=== PATIENT | male | born 1970 | race Caucasian/White ===

== ENCOUNTER 2020-08-06 07:45 | Emergency (ER) | payer BC, SELFPAY ==
--- NOTE | ~2020-08-06 | XR_ITS ---
EXAMINATION: XR chest 2V DATE: 08/06/2020 08:50 INDICATION: Extremity swelling. TECHNIQUE: Frontal and lateral views of the chest were obtained. COMPARISON: None. FINDINGS: There is mild atelectasis in left lower lung zone. No pleural effusion or pneumothorax. The heart size is normal. IMPRESSION: 1. Mild atelectasis in left lower lung zone. Reviewed, dictated and finalized at location B.
[2020-08-06 07:53] VITALS: BP 141/99; PULSE 101; RESP 18; TEMP 36.3; O2SAT 100
--- NOTE | 2020-08-06 08:01 | ED.GENADULT ---
HPI - General Adult General Chief complaint: Unspecified Stated complaint: feet and hand swelling Time Seen by Provider: 08/06/20 08:01 Source: patient Mode of arrival: ambulatory Limitations: no limitations History of Present Illness HPI narrative: Patient is a 49-year-old male who presents for evaluation of joint swelling and redness. Patient states he has had intermittent swelling and redness of his bilateral feet and bilateral hands. It does seem to come and go over the past 5 days. He denies fever, chills, chest pain, shortness of breath, belly pain, nausea or vomiting. No recent travel. No history of Covid. No history of sexually transmitted infection. No dysuria or hematuria. Pain is dull, aching in nature. He has been taking Benadryl without any improvement in his symptoms. He also reports itchiness overlying the skin in his feet at times. No focal weakness or numbness. No rash. Related Data Home Medications Medication Instructions Recorded Confirmed All Day Allergy (cetirizine) 08/06/20 Kenalog 08/06/20 amlodipine 08/06/20 chlorthalidone 08/06/20 docusate sodium [Stool Softener] PO 08/06/20 duloxetine mg PO 08/06/20 fluticasone propionate INTRANASAL 08/06/20 mupirocin TOPICAL 08/06/20 oxybutynin chloride 08/06/20 oxycodone 08/06/20 potassium chloride [Klor-Con M20] meq PO 08/06/20 sumatriptan 08/06/20 valacyclovir 08/06/20 Allergies Allergy/AdvReac Type Severity Reaction Status Date / Time No Known Allergies Allergy Verified 08/06/20 07:56 Review of Systems Review of Systems: Narrative: CONSTITUTIONAL: Denies fever, chills, or sweats. EYES: Denies visual changes, redness, or discharge. ENT: Denies rhinorrhea, congestion, sore throat, or otalgia. CARDIOVASCULAR: Denies chest pain, palpitations, or edema. RESPIRATORY: Denies cough or dyspnea. GASTROINTESTINAL: Denies abdominal pain, nausea, vomiting, or diarrhea. GENITOURINARY: Denies dysuria or hematuria. SKIN: Reports redness of joint spaces, itching, denies other rash MUSCULOSKELETAL: Denies back pain, reports bilateral hand and foot pain NEUROLOGIC: Denies headache, numbness, or weakness. PMFSH Surgical History Surgical History (Updated 08/06/20 @ 08:22 by Poly Gonzalez MD) H/O inguinal hernia repair Social History Social History (Updated 08/06/20 @ 08:22 by Poly Gonzalez MD) Smoking status: Never smoker Substance use: never Living arrangements: with family Gender identity (if verbalized by the patient): Male Exam Narrative: Exam Narrative: GENERAL: Awake, alert, conversant HEAD: Normocephalic, atraumatic. EYES: PERRLA and EOMI. ENT: Nares clear, no rhinorrhea or epistaxis. Mucous membranes moist. NECK: Supple. CHEST: No respiratory distress, breathing even and non labored HEART: Regular rate, sinus rhythm ABDOMEN:Non distended, non tender EXTREMITIES: Normal range of motion. Mild edema of the bilateral hands and feet. Non pitting. Mild erythema and induration. Non tender to palpation. Neurovascularly intact. Full ROM without limitation or deficit. SKIN: No rash. NEURO:No focal deficits. Alert and oriented x3 Course Vital Signs Vital signs: Vital Signs Temperature 36.3 C L 08/06/20 07:53 Pulse Rate 101 H 08/06/20 07:53 Respiratory Rate 18 08/06/20 07:53 Blood Pressure 141/99 H 08/06/20 07:53 Pulse Oximetry 100 08/06/20 07:53 Temperature 36.3 C L 08/06/20 07:53 Pulse Rate 85 08/06/20 08:23 Respiratory Rate 20 08/06/20 08:23 Blood Pressure 124/86 08/06/20 08:23 Pulse Oximetry 99 08/06/20 08:23 Medical Decision Making MDM Narrative Medical decision making narrative: Patient presented for evaluation of multiple sites of edema, erythema. At the time of assessment, ABCs are intact and vital signs are stable. Physical exam is notable for multiple joint involvement of mild induration, erythema, tenderness on exam. This does not appear to be septic in natur
[2020-08-06 08:10] VITALS: PULSE 100; RESP 20; O2SAT 98
[2020-08-06 08:15] VITALS: PULSE 93; RESP 17; O2SAT 99
[2020-08-06 08:23] VITALS: BP 124/86; PULSE 85; RESP 20; O2SAT 99
[2020-08-06] MEDS: DEXAMETHASONE SOD PHOS INJ 4 MG/ML VIAL 10 MG BY MOUTH (08:38)
[2020-08-06 08:39] LABS: Add Urine Microscopic? NO; Appearance Urine Clear (Clear); Basophils Percent Auto 0.1 % (0.2-1.2); Bilirubin Urine Negative (Negative); Blood Urine Negative (Negative); Color Urine Straw (Yellow); Eosinophils Absolute Auto 0.1 K/mm3 (0-0.3); Eosinophils Percent Auto 0.7 % (0-4.4); Glucose Urine UA Negative (Negative); Hematocrit 45.7 % (42.0-52.0); Hemoglobin 16.1 g/dL (14.0-18.0); Immature Granulocyte Absolute 0.06 K/mm3 (0.00-0.031); Immature Granulocyte Percent A 0.4 % (0-0.5); Immature Platelet Fraction Pct 2.8 % (0.9-11.2); Ketones Urine Negative (Negative); Leukocyte Esterase Ur Negative LEU/UL (Negative); Lymphocytes Absolute Auto 1.79 K/mm3 (0.9-3.2); Mean Corpuscular HGB Conc 35.2 g/dl (32-36); Mean Corpuscular Volume 85.3 fl (80-100); Monocytes Absolute Auto 0.7 K/mm3 (0.1-0.6); Monocytes Percent Auto 5.2 % (2.6-8.5); Neutrophils Absolute Auto 11.1 K/mm3 (1.3-6.7); Neutrophils Percent Auto 80.6 % (45.5-73.1); Nitrate Urine Negative (Negative); Platelet Count Result 268 k/mm3 (150-375); Protein Urine Negative (Negative); Red Blood Count 5.36 M/mm3 (4.6-6.20); Red Cell Distribution Width 11.9 % (11.5-14.5); Specific Grav Ur 1.008 (1.001-1.035); Urobilinogen Urine Negative mg/dL (<2.0); White Blood Count 13.8 K/mm3 (4.5-10.0)
[2020-08-06 08:53] LABS: Alanine Aminotransferase 30 U/L (4-50); Albumin Level 4.6 g/dL (3.5-5.1); Alkaline Phosphatase 92 U/L (38-126); Anion Gap 9 mmol/L (8-16); Aspartate Amino Transferase 33 U/L (17-59); Bilirubin,Total 0.7 mg/dL (0.2-1.3); Blood Urea Nitrogen 12 mg/dL (9-20); CRP 4.8 mg/dL (<1.0); Calcium 9.4 mg/dL (8.4-10.2); Carbon Dioxide 28 mmol/L (22-30); Chloride 98 mmol/L (98-107); Estimated CRCL calculation 111 ml/min; Estimated Glomerular Filt Rate > 60; Glucose 115 mg/dL (75-110); Potassium 3.2 mmol/L (3.4-5.0); Sodium 135 mmol/L (137-145)
[2020-08-06 08:56] LABS: Platelet Estimate Adequate (Adequate); Poikilocytosis 1+ (NORMAL)
[2020-08-06 09:47] VITALS: BP 133/88; PULSE 89; RESP 20; O2SAT 93
[2020-08-06 09:54] LABS: Erythrocyte Sedimentation Rate 22 mm/hr (0-20)
== END 2020-08-06 09:48 | disposition home or self-care (01) ==
PROVIDERS: Emergency Provider Emergency Medicine; PCP Internal Medicine
DX: M13.0 Polyarthritis, unspecified (principal); R91.8 Other nonspecific abnormal finding of lung field
CPT/HCPCS: 36415; 71046; 80053; 81003; 85025; 85055; 85652; 86140; 99283; J1100